=== PATIENT | female | born 1960 | race Caucasian/White ===

== ENCOUNTER → 2016-11-21 | Outpatient (CLI) | payer OTHER ==
--- NOTE | 2016-11-21 12:49 | RADIOLOGY REPORT PS360 ---
US RUQ-(ABD LTD)1ORGAN/QUAD/FU HISTORY: ADRIAN syndrome CIRRHOSIS ORDERING PHYSICIAN: RO RAMON APRN PATIENT AGE: 56 years COMPARISON: None FINDINGS: PANCREAS: Unremarkable. No obvious mass or abnormal fluid collection. No ductal dilatation LIVER: No focal liver lesions demonstrated. Homogeneous echogenicity. No intrahepatic biliary ductal dilatation evident. Portal vein is within normal limits at 12 mm. There is appropriate directional blood flow within the portal vein. There is minimal perihepatic fluid. Slight increased echogenicity of the liver suggesting hepatic steatosis. RIGHT KIDNEY: There is mild ectasia of the right renal collecting system. GALLBLADDER: Prior cholecystectomy. Common bile duct is normal at 4 mm. IMPRESSION: 1. Small amount perihepatic fluid. Mild hepatic steatosis. 2. Prior cholecystectomy. 3. Minimal ectasia of the right renal collecting system
== END ==
LOC: RAD 08:55
DX: K74.60 Unspecified cirrhosis of liver (principal)